=== PATIENT | male | born 1945 | race Caucasian/White ===

== ENCOUNTER → 2019-06-17 | Outpatient (CLI) | payer OTHER ==
[~2019-06-17] MED LIST: ALBUTEROL2.5 MG/0.5 INH; ALDACTONE25 M1 PO; ALLOPURINOL300 MG PO; AMLODIPINE10 MG PO; ATACAND32 MG PO; CARVEDILOL25 MG PO; CIPRO250 MG PO; COREG25 MG PO; COUMADIN5 M2 PO; COUMADIN7.5 M1 PO; Coumadin5 MG PO; DIGOXIN0.125 MG PO; DOXYCYCLINE100 MG PO; FUROSEMIDE40 MG PO; GABAPENTIN300 MG PO; GLYBURIDE5 MG PO; HUMULIN N100 U/ML SC; ISOSORBIDE DINI30 MG PO; LISINOPRIL40 MG PO; LOVAZA1 GM PO; PROVENTIL0.09 MG/AC IH
== END | disposition home or self-care (01) ==
LOC: CARD 10:06
DX: I35.2 Nonrheumatic aortic (valve) stenosis with insufficiency (principal); I48.21 Permanent atrial fibrillation; I27.20 Pulmonary hypertension, unspecified; Z86.79 Personal history of other diseases of the circulatory system; Z95.2 Presence of prosthetic heart valve

== ENCOUNTER 2019-08-25 11:41 | Inpatient (IN) | payer OTHER, MEDICARE ==
[2019-08-25] VITALS (9 sets, daily range): BP systolic 104–158; BP diastolic 47–85
[~2019-08-25] VITALS: Ht 182.8 cm
[~2019-08-25 11:41] MED LIST changes: -FUROSEMIDE40 MG PO; +LASIX20 MG PO; -LISINOPRIL40 MG PO; +ZESTRIL20 MG PO
[2019-08-25 12:20] LABS: BASO # 0.1 10*3/uL (0.0-0.1); BASO % 0.7 % (0.0-1.0); EOS # 0.3 10*3/uL (0.0-0.4); HEMOGLOBIN 11.3 g/dl (14.0-18.0); LYMPH # 1.3 10*3/uL (1.3-4.4); MEAN CELL VOLUME 93.3 fl (80.0-94.0); MEAN CORPUSCULAR HGB 30.1 pg (27.0-31.0); MEAN CORPUSCULAR HGB CONC 32.3 g/dl (33.0-37.0); MEAN PLATELET VOLUME 9.9 fl (9.6-12.3); MONO # 0.7 10*3/uL (0.1-1.0); MONO % 6.2 % (3.0-9.0); NEUT # 8.3 10*3/uL (2.3-7.9); NEUT % 77.6 % (47.0-73.0); PLATELET COUNT AUTOMATED 184 10*3/uL (130-400); RED BLOOD COUNT 3.75 10*6/uL (4.50-5.90); WHITE BLOOD COUNT 10.7 10*3/uL (4.8-10.8)
[2019-08-25 12:33] LABS: ALBUMIN 3.5 gm/dl (3.1-4.5); CREATININE 2.72 mg/dL (0.70-1.30); TOTAL PROTEIN 7.2 gm/dL (6.4-8.2)
[2019-08-25 12:36] LABS: POTASSIUM 8.3 mmol/L (3.5-5.1)
[2019-08-25 13:20] LABS: INTERNATIONAL NORM RATIO 4.8 (2.0-3.5)
[2019-08-25 14:55] LABS: ALBUMIN 3.7 gm/dl (3.1-4.5); CREATININE 2.7 mg/dL (0.70-1.30); TOTAL PROTEIN 7.5 gm/dL (6.4-8.2)
[2019-08-25 15:02] LABS: POTASSIUM 7.4 mmol/L (3.5-5.1)
--- NOTE | 2019-08-25 16:42 | NUR ---
PATIENT TAKEN TO ICCU AT THIS TIME BY THIS NURSE NO CHANGE IN PATIENT STATUS.
--- NOTE | 2019-08-25 16:43 | NUR ---
PATIENT HAD A WATERY BOWEL MOVEMENT. HAD A BOWEL MOVEMENT EARLIER WELL.
--- NOTE | 2019-08-25 17:00 | NUR ---
A 74, admitted to ICCU, under the services of LIVIA Cristobal DO with a diagnosis of HYPERAKALEMIA. Chief complaint is WEAKNESS. Patient arrived via ambulance from ER. Monitor applied. Initial assessment completed. Vital signs taken and recorded. LIVIA CRISTOBAL DO notified of admission to the unit. Orders received. See assessment for past medical history, medications and allergies. Patient and/or family oriented to unit. [facility] visitation policy reviewed. Clothing/patient valuable form completed. JARAD CARO
--- NOTE | 2019-08-25 17:08 | NUR ---
U NOTIFIED OF CONSULT FOR DEPRESSION
[2019-08-25] MEDS ORDERED: ZOCOR20 MG PO (17:12)
[2019-08-25] MEDS ORDERED: VITAMIN D-32000 UNI1 PO (17:15)
[2019-08-25] MEDS ORDERED: CELEXA10 MG PO (17:16)
[2019-08-25] MEDS ORDERED: MELATONIN3 MG PO (17:18)
[2019-08-25] MEDS ORDERED: COUMADIN2.5 M1 PO ×2 (17:22→17:23)
[2019-08-25] MEDS ORDERED: COUMADIN5 M2 PO (17:24)
[2019-08-25 17:28] LABS: CREATININE 2.55 mg/dL (0.70-1.30)
[2019-08-25 17:29] LABS: POTASSIUM 6.6 mmol/L (3.5-5.1)
--- NOTE | 2019-08-25 20:25 | NUR ---
PT. RESTING IN BED. HEP LOCKS X2 ASYMPT. LUNGS DIMINISHED BILAT, PULSE OX 99-100% ON RA. ABDOMEN SOFT, NONDISTENDED AND NORMO. NO PERIPHERAL EDEMA NOTED. WELLS DRAINING A CLEAR PALE CANDY URINE. MARCIA WELCH RN
[2019-08-25 21:06] LABS: BILIRUBIN NEGATIVE (NEGATIVE); BLOOD 3+ (NEGATIVE); CLARITY CLOUDY (CLEAR); GLUCOSE NEGATIVE (NEGATIVE); KETONE NEGATIVE (NEGATIVE); LEUKO ESTERASE TRACE (NEGATIVE); NITRITE NEGATIVE (NEGATIVE); UROBILINOGEN 0.2 E.U./dl (0.2-1.0)
[2019-08-25 21:07] LABS: COLOR ORANGE (YELLOW)
[2019-08-25 21:11] LABS: RBC TNTC rbc/hpf (0-2); WBC 0-2 wbc/hpf (0-5)
[2019-08-25 21:14] LABS: URINE CREATININE RANDOM 34.4 mg/dL
[2019-08-25 22:43] LABS: CREATININE 2.33 mg/dL (0.70-1.30); POTASSIUM 5.9 mmol/L (3.5-5.1)
--- NOTE | 2019-08-25 23:50 | NUR ---
DR. WARE CALLED IN TO CHECK PT STATUS. UPDATED TO PATIENT LAB WORK AND STATUS. ORDERS RECEIVED. MARCIA WELCH RN
[2019-08-26] VITALS: BP 103/54
[2019-08-26 04:00] VITALS: BP 112/67
[2019-08-26 05:36] LABS: ALBUMIN 3.4 gm/dl (3.1-4.5); CREATININE 2.34 mg/dL (0.70-1.30); PHOSPHOROUS 3.8 mg/dL (2.5-4.9); POTASSIUM 5.2 mmol/L (3.5-5.1)
[2019-08-26 05:42] LABS: FREE T4 1.02 ng/dl (0.76-1.46); THYROID STIM HORMONE (HS) 2.57 uIU/ml (0.358-4.75); TOTAL PROTEIN 7.3 gm/dL (6.4-8.2); VITAMIN D, 25-HYDROXY 32.5 ng/mL (30-100)
[2019-08-26 06:10] LABS: BASO # 0.1 10*3/uL (0.0-0.1); BASO % 0.6 % (0.0-1.0); EOS # 0.3 10*3/uL (0.0-0.4); EOS % 2.1 % (1.0-4.0); HEMATOCRIT 37.1 % (42.0-52.0); HEMOGLOBIN 12.1 g/dl (14.0-18.0); LYMPH # 1.5 10*3/uL (1.3-4.4); LYMPH % 11.2 % (27.0-41.0); MEAN CELL VOLUME 92.3 fl (80.0-94.0); MEAN CORPUSCULAR HGB 30.1 pg (27.0-31.0); MEAN CORPUSCULAR HGB CONC 32.6 g/dl (33.0-37.0); MEAN PLATELET VOLUME 10.4 fl (9.6-12.3); MONO # 1.1 10*3/uL (0.1-1.0); MONO % 8.2 % (3.0-9.0); NEUT # 10.4 10*3/uL (2.3-7.9); NEUT % 77.5 % (47.0-73.0); PLATELET COUNT AUTOMATED 211 10*3/uL (130-400); RED BLOOD COUNT 4.02 10*6/uL (4.50-5.90); RED CELL DISTRI WIDTH 15.1 % (0-14.5); WHITE BLOOD COUNT 13.4 10*3/uL (4.8-10.8)
[2019-08-26 06:14] LABS: ACT PARTIAL THROMBO TIME 50.4 SECONDS (20.0-32.1); INTERNATIONAL NORM RATIO 4.4 (2.0-3.5)
[2019-08-26 08:00] VITALS: BP 136/66
--- NOTE | 2019-08-26 08:28 | NUR ---
PHYSICAL THERAPY Pt admit from home with weakness per chart, if pt has a decline in functional status from baseline please consult PT thank you Brittany Cardenas PT
--- NOTE | 2019-08-26 08:55 | NUR ---
Nursing screen received and chart reviewed. Patient admitted from home w/ weakness. If patient should have a decline in ADLs then refer to OT. Thank you. Edda Erickson OTR/L
--- NOTE | 2019-08-26 09:00 | NUR ---
UP TO RECLINER X 2 ASSIST, PT ABLE TO STAND INDEPENDENTLY
--- NOTE | 2019-08-26 11:15 | NUR ---
TO BSC FOR LARG BM, THEN BACK TO BED
[2019-08-26 12:00] VITALS: BP 136/59
[2019-08-26 13:23] LABS: CREATININE 2.26 mg/dL (0.70-1.30)
--- NOTE | 2019-08-26 13:30 | NUR ---
Store Coordinator in to talk to patient. Patient states lives at home with his daughter. There are 0 steps in the home. Physician: Dr. Quach at the [facility] Pharmacy: [facility] or the [place] Home health services: none Patient's level of ADLs: MINIMAL ASSIST Patient has working utilities: yes DME: wheelchair, nebulizer Follow-up physician's appointment after d/c: will be made by the hospitalist nurse director upon discharge Does patient want to access PORTAL?: no Discharge plan discussed with patient. He lives at home with his daughter. He needs minimal assistance with his ADLs and gets around in a wheelchair. Discussed home health care services and he denies any home needs at this time. When medically stable he will be discharged to home. He states his daughter will provide transportation on discharge. CHAO WHIPPLE
[2019-08-26 16:00] VITALS: BP 151/58
[2019-08-26 20:00] VITALS: BP 124/60
--- NOTE | 2019-08-26 20:30 | NUR ---
PT RESTING IN BED. RESP-EASY AND REGULAR. IVF INFUSING WITH NO PROBLEM. NO C/O AT THIS TIME. CALL LIGHT IN REACH. BED ALARM ON.
--- NOTE | 2019-08-26 22:30 | NUR ---
RESTING IN BED. IVF INFUSING WITH NO PROBLEM. NO C/O AT THIS TIME. CALL LIGHT IN REACH.
[2019-08-27] VITALS: BP 102/41
--- NOTE | 2019-08-27 00:20 | NUR ---
AROUSES EASILY DURING ASSESSMENT. IV FLUIDS INFUSING INTO RIGHT WRIST; SITE ASYMPTOMATIC. PT. VOICES NO C/O AT THIS TIME. CALL LIGHT WITHIN REACH.
--- NOTE | 2019-08-27 05:30 | NUR ---
ASSIST OF 2 UP TO SIDE OF BED. BED ZEROED AT THIS TIME. BACK TO BED ASSIST OF 2. WEIGHED & BED ALARM INTACT. IV FLUIDS CONTINUE TO INFUSE ORDERED; NEW DRESSING APPLIED TO IV SITE. PT. STATES THAT HE DOES NOT HAVE TO GO TO THE BATHROOM AT THIS TIME. CALL LIGHT WITHIN REACH; BED IN LOW LOCKED POSITION.
--- NOTE | 2019-08-27 05:50 | NUR ---
BLOOD SUGAR 75; GAVE PATIENT SOME ORANGE JUICE & CRACKERS.
--- NOTE | 2019-08-27 06:30 | NUR ---
IV started left forearm with #22 protective cath after 1 attempts. Site prepped with Chloroprep. Sterile dressing applied. Patient tolerated procedure well. IV infusing at NS 60 cc/hr. MARTIN LOVETT
[2019-08-27 06:46] LABS: BASO # 0.1 10*3/uL (0.0-0.1); BASO % 0.7 % (0.0-1.0); EOS # 0.3 10*3/uL (0.0-0.4); EOS % 2.9 % (1.0-4.0); HEMATOCRIT 36.7 % (42.0-52.0); HEMOGLOBIN 11.7 g/dl (14.0-18.0); LYMPH % 17.4 % (27.0-41.0); MEAN CELL VOLUME 92.4 fl (80.0-94.0); MEAN CORPUSCULAR HGB 29.5 pg (27.0-31.0); MEAN CORPUSCULAR HGB CONC 31.9 g/dl (33.0-37.0); MEAN PLATELET VOLUME 10.3 fl (9.6-12.3); MONO # 1.2 10*3/uL (0.1-1.0); MONO % 10.9 % (3.0-9.0); NEUT # 7.6 10*3/uL (2.3-7.9); NEUT % 67.6 % (47.0-73.0); PLATELET COUNT AUTOMATED 204 10*3/uL (130-400); RED BLOOD COUNT 3.97 10*6/uL (4.50-5.90); RED CELL DISTRI WIDTH 14.8 % (0-14.5); WHITE BLOOD COUNT 11.2 10*3/uL (4.8-10.8)
[2019-08-27 07:16] LABS: ALBUMIN 3.3 gm/dl (3.1-4.5); CREATININE 2.19 mg/dL (0.70-1.30); PHOSPHOROUS 3.5 mg/dL (2.5-4.9); POTASSIUM 4.9 mmol/L (3.5-5.1)
[2019-08-27 07:24] LABS: INTERNATIONAL NORM RATIO 3.2 (2.0-3.5)
--- NOTE | 2019-08-27 07:45 | NUR ---
ASSESSMENT COMPLETE. AT THIS TIME PT HAS NO COMPLAINTS. CALL LIGHT WITHIN REACH, WILL CONTINUE TO MONITOR
--- NOTE | 2019-08-27 10:30 | NUR ---
Preparer Samples And Repairs in to see patient. No new needs or request at this time. Discussed home health care services and he denies any home needs at this time. When medically stable he will be discharged to home with his daughter.
--- NOTE | 2019-08-27 10:36 | NUR ---
PT FAMILY IN AND ASKING ABOUT RESULTS OF RENAL ULTRASOUND. WANTING TO TALK TO DR AT THIS TIME, AND RESIDENTS ARE ON THE FLOOR SO THEY WILL TALK TO THEM AT THIS TIME WELL
--- NOTE | 2019-08-27 11:52 | NUR ---
PT STATES THEY ARE FEELING SOB AND IS REQUESTING BREATHING TREATMENT. CALLED RESP NO ANSWER SO WILL CALL BACK
[2019-08-27 12:00] VITALS: BP 106/54
--- NOTE | 2019-08-27 12:01 | NUR ---
CALLED DR BERGMAN PER PT REQUEST OF A BREATHING TREATMENT AND HE STATES HE WILL PUT AN ORDER IN. RESPIRATORY ON THE FLOOR NOW AND INFORMED OF THIS
--- NOTE | 2019-08-27 13:58 | NUR ---
IN TO PT ROOM TO CHECK ON HIM, PT STATES HE WANTS TO GET OUT OF HIS CHAIR AND GO INTO BED. NO COMPLAINTS AT THIS TIME. WILL CONTINUE TO MONITOR
[2019-08-27 16:00] VITALS: BP 112/55
--- NOTE | 2019-08-27 16:34 | NUR ---
DR WARE ON FLOOR AND STATES SHE WANTS TO DC NS AND PUT HIM ON 1/2 NS AT 60. WILL PUT ORDER IN FOR HER
--- NOTE | 2019-08-27 17:15 | NUR ---
IV started right hand with # angiocath after 1 attempts. The IV site was prepped with Chloraprep. Heparin lock attached. IV solution 0.45NS infusing at 60 cc/hr. Sterile dressing applied. Patient tolerated precedure well. Procedure performed according to [facility] policy & procedure. SHERYL POON
[2019-08-27 20:00] VITALS: BP 143/55
--- NOTE | 2019-08-27 21:57 | NUR ---
TYLENOL ADMINISTERED FOR PT C/O HEADACHE RATED 5/10. WILL MONITOR.
[2019-08-28] VITALS: BP 109/52
[2019-08-28 07:08] LABS: BASO # 0.1 10*3/uL (0.0-0.1); BASO % 0.7 % (0.0-1.0); EOS # 0.3 10*3/uL (0.0-0.4); EOS % 2.5 % (1.0-4.0); HEMATOCRIT 33.2 % (42.0-52.0); HEMOGLOBIN 10.7 g/dl (14.0-18.0); LYMPH # 1.4 10*3/uL (1.3-4.4); LYMPH % 14.4 % (27.0-41.0); MEAN CORPUSCULAR HGB 29.6 pg (27.0-31.0); MEAN CORPUSCULAR HGB CONC 32.2 g/dl (33.0-37.0); MEAN PLATELET VOLUME 10.2 fl (9.6-12.3); MONO % 9.6 % (3.0-9.0); NEUT # 7.3 10*3/uL (2.3-7.9); NEUT % 72.3 % (47.0-73.0); PLATELET COUNT AUTOMATED 186 10*3/uL (130-400); RED BLOOD COUNT 3.61 10*6/uL (4.50-5.90); RED CELL DISTRI WIDTH 14.7 % (0-14.5)
[2019-08-28 07:45] LABS: CREATININE 1.93 mg/dL (0.70-1.30); POTASSIUM 5.3 mmol/L (3.5-5.1)
[2019-08-28 08:07] LABS: CREATININE,URINE 125.6 mg/dL (Not Estab.); MICRO ALBUMIN/CRE RATIO 241.8 (0.0-30.0)
--- NOTE | 2019-08-28 08:17 | NUR ---
Spoke to Jeanne at the [place] regarding discharge planning. Informed of patient's status and discharge plans. She will call again tomorrow to see how the patient is doing.
--- NOTE | 2019-08-28 10:30 | NUR ---
Senior Sales Assistant in to see patient. Daughters at his bedside. He is sitting on the edge of his bed. Discussed short term SNF and he refuses. Discussed home health care services and he is agreeable but wants it through the [place] as his [place] is [place] A only. Will reach out to Zakiya at the [facility].
[2019-08-28 12:00] VITALS: BP 116/60
--- NOTE | 2019-08-28 15:28 | NUR ---
Message left for Zakiya at the [facility] regarding home health care services. Awaiting return call.
[2019-08-28 16:00] VITALS: BP 121/66
[2019-08-28 20:00] VITALS: BP 144/82
--- NOTE | 2019-08-28 20:00 | NUR ---
RESTING IN BED. VOICES NO C/O AT THIS TIME. CALL LIGHT WITHIN REACH.
[2019-08-28 22:00] VITALS: BP 149/82
--- NOTE | 2019-08-28 22:00 | NUR ---
BLOOD SUGAR 78; PT. STATES THAT HE DOES NOT TAKE ANY INSULIN AT HOME. TOOK PO MEDICATIONS WITHOUT DIFFICULTY. PULSE OX 99% ON ROOM AIR.. CALL LIGHT WITHIN REACH & BED ALARM PUT ON DUE TO PATIENT HAVING FALLS. PT. INFORMED THAT BED ALARM WAS PUT ON; VERBALIZED UNDERSTANDING.
[2019-08-29] VITALS: BP 125/50
[2019-08-29 06:45] LABS: BASO # 0.1 10*3/uL (0.0-0.1); BASO % 0.7 % (0.0-1.0); EOS # 0.3 10*3/uL (0.0-0.4); EOS % 3.3 % (1.0-4.0); HEMATOCRIT 31.1 % (42.0-52.0); LYMPH # 1.5 10*3/uL (1.3-4.4); LYMPH % 17.7 % (27.0-41.0); MEAN CELL VOLUME 92.8 fl (80.0-94.0); MEAN CORPUSCULAR HGB 29.9 pg (27.0-31.0); MEAN CORPUSCULAR HGB CONC 32.2 g/dl (33.0-37.0); MEAN PLATELET VOLUME 9.7 fl (9.6-12.3); MONO # 0.8 10*3/uL (0.1-1.0); NEUT # 5.8 10*3/uL (2.3-7.9); NEUT % 68.9 % (47.0-73.0); PLATELET COUNT AUTOMATED 162 10*3/uL (130-400); RED BLOOD COUNT 3.35 10*6/uL (4.50-5.90); RED CELL DISTRI WIDTH 14.8 % (0-14.5); WHITE BLOOD COUNT 8.4 10*3/uL (4.8-10.8)
[2019-08-29 07:01] LABS: INTERNATIONAL NORM RATIO 2.7 (2.0-3.5)
[2019-08-29 07:21] LABS: POTASSIUM 4.5 mmol/L (3.5-5.1)
[2019-08-29 07:23] LABS: CREATININE 1.75 mg/dL (0.70-1.30)
--- NOTE | 2019-08-29 07:30 | NUR ---
BLOOD SUGAR 69; NO COVERAGE NEEDED.
[2019-08-29 09:00] VITALS: BP 150/70
--- NOTE | 2019-08-29 09:00 | NUR ---
Gift Basket Packer in to see patient. Discussed receiving a message from Zakiya at the [place] regarding home health care services. Explained [facility] and he is agreeable and has an appt with the [facility] on 09/04. Nurse notified.
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
[2019-08-29] MEDS ORDERED: COUMADIN2.5 M1 PO (10:28)
[2019-08-29] MEDS ORDERED: COUMADIN5 M2 PO (10:28)
[2019-08-29] MEDS ORDERED: LASIX20 MG PO (10:29)
--- NOTE | 2019-08-29 13:40 | NUR ---
PT UNDERSTANDS DISCHARGE INSTRUCTIONS, IV REMOVED, TELE REMOVED. FAMILY AT BEDSIDE TO TAKE PATIENT HOME, NO QUESTIONS ON DISCHARGE AT THIS TIME
--- NOTE | 2019-08-29 13:41 | NUR ---
PATIENT DISCHARGED TO HOME.
== END 2019-08-29 13:41 | disposition home or self-care (01) | DRG 640 ==
LOC: ED 11:41 → ICCU 13:54 → EDHOLD 13:54 → ICCU 15:57 → 4E 08-26 18:00
PROVIDERS: Family Medicine; Internal Medicine; Internal Medicine Nephrology; Nurse Practitioner Family; ADMIT Emergency Medicine
DX: E87.5 Hyperkalemia (principal); N17.0 Acute kidney failure with tubular necrosis; I50.22 Chronic systolic (congestive) heart failure; I13.0 Hypertensive heart and chronic kidney disease with heart failure and stage 1 through stage 4 chronic kidney disease, or unspecified chronic kidney disease; I50.32 Chronic diastolic (congestive) heart failure; N18.4 Chronic kidney disease, stage 4 (severe); E87.1 Hypo-osmolality and hyponatremia; D64.9 Anemia, unspecified; D72.810 Lymphocytopenia; E87.8 Other disorders of electrolyte and fluid balance, not elsewhere classified; E11.22 Type 2 diabetes mellitus with diabetic chronic kidney disease; E78.5 Hyperlipidemia, unspecified; J44.9 Chronic obstructive pulmonary disease, unspecified; E11.42 Type 2 diabetes mellitus with diabetic polyneuropathy; F43.23 Adjustment disorder with mixed anxiety and depressed mood; Z95.2 Presence of prosthetic heart valve; Z95.0 Presence of cardiac pacemaker; I25.2 Old myocardial infarction; Z86.73 Personal history of transient ischemic attack (TIA), and cerebral infarction without residual deficits; Z79.899 Other long term (current) drug therapy; Z79.01 Long term (current) use of anticoagulants; Z82.49 Family history of ischemic heart disease and other diseases of the circulatory system; Z80.1 Family history of malignant neoplasm of trachea, bronchus and lung; Z87.891 Personal history of nicotine dependence

== ENCOUNTER 2019-10-12 08:41 | Inpatient (IN) | payer OTHER ==
[~2019-10-12] VITALS: Ht 182.8 cm; Wt 102.3 kg
[2019-10-12] VITALS (7 sets, daily range): BP systolic 127–176; BP diastolic 61–87
[~2019-10-12 08:41] MED LIST changes: +CELEXA10 MG PO; +COUMADIN2.5 M1 PO; +MELATONIN3 MG PO; +VITAMIN D-32000 UNI1 PO; +ZOCOR20 MG PO
[2019-10-12 09:18] LABS: BASO # 0.1 10*3/uL (0.0-0.1); BASO % 0.5 % (0.0-1.0); EOS # 0.3 10*3/uL (0.0-0.4); EOS % 2.7 % (1.0-4.0); HEMATOCRIT 35.4 % (42.0-52.0); HEMOGLOBIN 11.4 g/dl (14.0-18.0); LYMPH # 0.5 10*3/uL (1.3-4.4); MEAN CELL VOLUME 93.2 fl (80.0-94.0); MEAN CORPUSCULAR HGB CONC 32.2 g/dl (33.0-37.0); MEAN PLATELET VOLUME 10.4 fl (9.6-12.3); MONO % 11.1 % (3.0-9.0); NEUT # 7.5 10*3/uL (2.3-7.9); NEUT % 80.4 % (47.0-73.0); PLATELET COUNT AUTOMATED 167 10*3/uL (130-400); RED CELL DISTRI WIDTH 14.6 % (0-14.5); WHITE BLOOD COUNT 9.4 10*3/uL (4.8-10.8)
[2019-10-12 09:38] LABS: ALBUMIN 3.1 gm/dl (3.1-4.5); CREATININE 1.58 mg/dL (0.70-1.30); POTASSIUM 4.4 mmol/L (3.5-5.1); TOTAL PROTEIN 6.9 gm/dL (6.4-8.2)
[2019-10-12 09:41] LABS: TROPONIN I 0.058 ng/ml (<0.045)
[2019-10-12 09:42] LABS: INTERNATIONAL NORM RATIO 2.3 (2.0-3.5)
--- NOTE | 2019-10-12 12:10 | NUR ---
PT TEMP IS 98.1 ORAL. TYLENOL EFFECTIVE FOR FEVER.
[2019-10-12 12:15] LABS: BILIRUBIN NEGATIVE (NEGATIVE); BLOOD 2+ (NEGATIVE); CLARITY SL CLOUDY (CLEAR); COLOR YELLOW (YELLOW); GLUCOSE 1+ (NEGATIVE); KETONE NEGATIVE (NEGATIVE); LEUKO ESTERASE NEGATIVE (NEGATIVE); NITRITE NEGATIVE (NEGATIVE); UROBILINOGEN 0.2 E.U./dl (0.2-1.0)
[2019-10-12 12:20] LABS: BACTERIA TRACE; EPITHELIAL CELLS 0-2
[2019-10-12] MEDS ORDERED: COUMADIN2.5 M1 PO (13:46)
[2019-10-12] MEDS ORDERED: Coumadin5 MG PO (13:47)
--- NOTE | 2019-10-12 14:05 | NUR ---
Notified Dr. Moreland that med rec was updated.
--- NOTE | 2019-10-12 14:25 | NUR ---
Notified Dr. Moreland of elevated troponin.
--- NOTE | 2019-10-12 16:36 | NUR ---
Notified Dr. Moreland of elevated troponin of 0.076 as reported by lab.
--- NOTE | 2019-10-12 16:39 | NUR ---
Pt up out of bed with assist to use urinal. States he became weak and nauseated. Vomited small amount of liquid. States he has not eaten all day. Denies chest pain. Skin is cool and dry. Denies dizziness. Zofran given per prn order at this time.
--- NOTE | 2019-10-12 17:00 | NUR ---
ANSWERING SERVICE WAS NOTIFIED OF DR. MORTON CONSULT. RESPONSE OF NOTIFICATION WAS STATES DR. MORTON IS RECTIFYING ATTENDANT AND THEY WILL FORWARD INFORMATION TO THE PHYSICAN WITH REQUEST FOR CALL BACK. JUVENCIO CERVANTES
--- NOTE | 2019-10-12 17:30 | NUR ---
Dr. Damián miles.
--- NOTE | 2019-10-12 17:45 | NUR ---
States that zofran effective for nausea.
--- NOTE | 2019-10-12 20:08 | NUR ---
DR. GILLETTE CONTACTED AT THIS TIME IN REGARDS TO TROPONIN OF 0.099, NO NEW ORDERS RECIEVED AT THIS TIME.
[2019-10-13] VITALS: BP 120/53
[2019-10-13 06:46] LABS: BASO % 0.5 % (0.0-1.0); EOS % 0.1 % (1.0-4.0); HEMATOCRIT 35.8 % (42.0-52.0); HEMOGLOBIN 11.1 g/dl (14.0-18.0); LYMPH % 13.1 % (27.0-41.0); MEAN CELL VOLUME 94.5 fl (80.0-94.0); MEAN CORPUSCULAR HGB 29.3 pg (27.0-31.0); MEAN PLATELET VOLUME 10.3 fl (9.6-12.3); MONO # 1.2 10*3/uL (0.1-1.0); MONO % 14.9 % (3.0-9.0); NEUT # 5.5 10*3/uL (2.3-7.9); NEUT % 71.1 % (47.0-73.0); PLATELET COUNT AUTOMATED 155 10*3/uL (130-400); RED BLOOD COUNT 3.79 10*6/uL (4.50-5.90); RED CELL DISTRI WIDTH 14.6 % (0-14.5); WHITE BLOOD COUNT 7.8 10*3/uL (4.8-10.8)
[2019-10-13 07:14] LABS: ALBUMIN 2.9 gm/dl (3.1-4.5); CREATININE 1.71 mg/dL (0.70-1.30); TOTAL PROTEIN 6.7 gm/dL (6.4-8.2)
[2019-10-13 08:00] VITALS: BP 120/60
--- NOTE | 2019-10-13 09:00 | NUR ---
24 HR chart check completed.
--- NOTE | 2019-10-13 09:00 | NUR ---
RESTING IN BED WITH NO ACUTE DISTRESS NOTED. RESPIRATIONS EASY. LUNGS DIMINISHED WITH EXP WHEEZES. PULSE OX 100% 2L. NON-PROD COUGH, AWARE OF NEED FOR SPUTUM SPECIMEN AND CUP PRESENT AT BEDSIDE. CALL LIGHT WITHIN REACH. NO VOICED COMPLAINTS
[2019-10-13 12:00] VITALS: BP 121/66
--- NOTE | 2019-10-13 12:00 | NUR ---
VISITING WITH FAMILY. VSS. PULSE OX 97% RA. CALL LIGHT WITHIN REACH. NO VOICED COMPLAINTS. BED ALARM MAINTAINED FOR SAFETY
--- NOTE | 2019-10-13 14:00 | NUR ---
PHYSICAL THERAPY PT EVAL COMPLETED TODAY ON LEVEL 4: FULL EVAL TO FOLLOW. RECOMMEND PT WHILE HERE TO ADDRESS DECREASED STRENGTH AND OVERALL DECREASED MOBILITY. PT EVAL IS MODERATE COMPLEXITY:35235.D/CRECOMMENDATIONS ARE FOR SNF BASED ON EVAL TODAY BYT FAMILY STATES WILL MOST LIKELY REFUSE THEREFORE WOULD ADVISE HOME HEALTH SERVICES. THANK YOU FOR REFERRAL MARY ROSENTHAL PT
[2019-10-13 16:00] VITALS: BP 110/62
--- NOTE | 2019-10-13 16:00 | NUR ---
RESTING IN BED. NO DISTRESS. NO VOICED COMPLAINTS
--- NOTE | 2019-10-13 18:15 | NUR ---
DR MORTON HERE TO ASSESS PATIENT AND DISCUSS PLAN OF CARE
[2019-10-13 20:00] VITALS: BP 127/86
--- NOTE | 2019-10-13 20:39 | NUR ---
PATIENT IS AAOX3 RESTING IN BED WITH EASY AND REGULAR RESPERS ON ROOM AIR. ASSESSMENT IS COMPLETE WITH NO S/S OF DISTRESS NOTED OR C/O AT THIS TIME. BED IS LOW, LOCKED, AND CALL LIGHT IS WITHIN REACH, WILL MONITOR EFFECT, SEE SHIFT ASSESSMENT.
[2019-10-14] VITALS: BP 122/47
[2019-10-14 06:56] LABS: INTERNATIONAL NORM RATIO 2.3 (2.0-3.5)
[2019-10-14 06:59] LABS: CREATININE 1.71 mg/dL (0.70-1.30); POTASSIUM 4.2 mmol/L (3.5-5.1)
[2019-10-14 08:00] VITALS: BP 130/80
--- NOTE | 2019-10-14 08:08 | NUR ---
PHYSICAL THERAPY Screen and eval received pt has been evaluated and is on caseload thank you Brittany Cardenas PT
--- NOTE | 2019-10-14 09:00 | NUR ---
Community Living Specialist in to talk to patient. Patient states lives at home with daughter. There are no steps in the home. Physician: jeremy Pharmacy: [facility] Home health services: none Patient's level of ADLs: MINIMAL ASSIST Patient has working utilities: all working DME: wheelchair, walker, nebulizer Follow-up physician's appointment after d/c: will be made by hospitalist nurse director upon discharge Does patient want to access PORTAL?: no Discharge plan discussed with patient, daughter present that patient does not live with, patient states he has a walker and wheelchair but doesn't ambulate well, he doesn't have any home oxygen, he stated he has va and medicare insurance. discussed with him a discharge plan including a short term long term for rehab prior to returning home, he declined, stated he would return home, also discussed [facility] and educated them on the services they provide, educated him that if he wanted this to be set up through [place] he would need to contact the clinic in [place] and request this, he also had the option to use his medicare for this. patient wanted to go through the [place] and stated he would contact them when discharged, case management will follow. LUIS WEATHERS
--- NOTE | 2019-10-14 11:39 | NUR ---
SPEECH PATHOLOGY Nursing screen complete. This dept. will remain available for consult as needed. MADHU VERAS MSCCC-LEVER OPERATOR
[2019-10-14 12:00] VITALS: BP 144/93
--- NOTE | 2019-10-14 13:15 | NUR ---
PHYSICAL THERAPY Patient seen this pm 1:1 for therapy visit and and was sitting up on EOB upon therapist arrival. Patient identified by name / and presented with continuos O2-2L via NC. Patient resting Spo2 98%, HR 69 bpm prior to treatment as patient completed sit to stand transfer, MIN A from low bed surface, tolerating static stand x 2 minutes with mild fatigue noted. SpO2 was 98%, HR 82 bpm. Patient needed only brief seated rest break then ambulated 35'x 1, CGA, use of wh walker, demonstrating very slow, cautious gait pattern, secondary to increased fear of falling. Patient reports B LE weakness and was unsteady during 180 turn around. Patient returned to EOB sit and remained with call light, tray table and telephone. Will continue per POC as tolerated, total treatment time 17 minutes. Pablito Canales, GRIEVANCE AND APPEALS COORDINATOR
--- NOTE | 2019-10-14 14:08 | NUR ---
PT RESTING IN BED. NO COMPLAINTS AT THIS TIME. CALL LIGHT WITHIN REACH. WILL CONTINUE TO MONITOR.
--- NOTE | 2019-10-14 15:34 | NUR ---
Occupational therapy orders and nursing screen received. Will follow up with the patient for completion of the OT evaluation. Thank you. Shalonda Mascorro, OTR/L
[2019-10-14 16:00] VITALS: BP 140/63
--- NOTE | 2019-10-14 18:10 | NUR ---
PRN ZOFRAN GIVEN FOR NAUSEA/VOMITING WILL CHECK EFFECTIVENESS. CALL LIGHT IN REACH.
--- NOTE | 2019-10-14 18:59 | NUR ---
PT STATES ZOFRAN WAS SOMEWHAT EFFECTIVE. HE IS STILL FEELING JUST A LITTLE NAUSEOUS. WILL CONTINUE TO MONITOR.
--- NOTE | 2019-10-14 19:52 | NUR ---
PATIENT IS AAOX3, RESTING IN BED WITH EASY AND REGULAR RESPERS ON 2L O2 VIA NC. ASSESSMENT IS COMPLETE WITH NO C/O OR S/S OF DISTRESS NOTED. BED IS LOW, LOCKED, AND CALL LIGHT IS WITHIN REACH. WILL CONTINUE TO MONITOR, SEE SHIFT ASSESSMENT.
[2019-10-14 20:00] VITALS: BP 153/68
[2019-10-15] VITALS: BP 153/65
--- NOTE | 2019-10-15 00:32 | NUR ---
PATIENT C/O PERSISTANT COUGH. SPOKE WITH DR. IQBAL, SEE NEW ORDERS.
--- NOTE | 2019-10-15 05:00 | NUR ---
CHART CHECK COMPLETE.
[2019-10-15 06:36] LABS: INTERNATIONAL NORM RATIO 2.5 (2.0-3.5)
[2019-10-15 06:41] LABS: CREATININE 1.6 mg/dL (0.70-1.30); POTASSIUM 4.3 mmol/L (3.5-5.1)
[2019-10-15 08:00] VITALS: BP 126/60
--- NOTE | 2019-10-15 09:55 | NUR ---
PHYSICAL THERAPY Patient was resting supine in bed this am when approached for therapy visit and reports not feeling very well this morning. Patient stated he has a dry, non productive cough and feels achy all over. Patient requested to be seen this pm to allow him time to rest. Will continue per POC as tolerated. Pablito Canales, CAPACITY PLANNING MANAGER
--- NOTE | 2019-10-15 10:15 | NUR ---
case management visits with patient, he states he will return home when medically stable and will [facility], case management will follow
[2019-10-15 12:00] VITALS: BP 124/58
--- NOTE | 2019-10-15 13:15 | NUR ---
PHYSICAL THERAPY Patient seen this pm 1;1 for therapy visit and was sitting up on EOB following lunch upon therapist arrival. Patient identified by name / and stated he was feeling a little bit better this afternoon. Patient trasnfers sit to stand CGA and ambulates with use of wh walker, CGA, 40'x 1, demonstrating very slow, cautious gait pattern, including decreased stride. Patient reports he has fear of falling secondary to history of knee buckling without warning. Patient also needed v/c for safe walker navigation during 180 turn around and returned to EOB sit with increased fatigue. Patient would benefit from SNF to increase LE strength, standing activity tolerance and mobility to reduce risk of falls. Patient remained EOB sit with call light, tray table and telephone. Will continue per POC as tolerated, total treatment time 14 minutes. Pablito Canales, WELCOME CENTER AGENT
[2019-10-15 16:00] VITALS: BP 151/99
[2019-10-15 18:00] VITALS: BP 142/64
--- NOTE | 2019-10-15 19:00 | NUR ---
ASSUMED CARE FOR THIS PT AT THIS TIME. NO C/O VOICED. CALL LIGHT IN REACH.
[2019-10-15 20:00] VITALS: BP 121/45
--- NOTE | 2019-10-15 22:45 | NUR ---
24 HR chart check completed.
[2019-10-16] VITALS: BP 132/49
--- NOTE | 2019-10-16 00:03 | NUR ---
PT MEDICATED W/TESSALON PEARLS FOR C/O FREQUENT COUGH PROHIBITING PT FROM SLEEPING.
[2019-10-16 06:42] LABS: INTERNATIONAL NORM RATIO 2.9 (2.0-3.5)
--- NOTE | 2019-10-16 06:44 | NUR ---
PT MEDICATED W/TESSALON PEARLS FOR C/O FREQ COUGH.
[2019-10-16 07:00] LABS: CREATININE 1.56 mg/dL (0.70-1.30); POTASSIUM 4.1 mmol/L (3.5-5.1)
[2019-10-16 08:00] VITALS: BP 158/72
--- NOTE | 2019-10-16 08:30 | NUR ---
Patient resting quietly with no c/o discomfort. Respirations easy and regular. Vital signs stable. No overt distress. PARKER GIL R
--- NOTE | 2019-10-16 09:00 | NUR ---
case management visits with patient, he states he will return home with his daughter and denies any home needs, case management will follow
[2019-10-16 12:00] VITALS: BP 152/50
[2019-10-16] MEDS ORDERED: LASIX40 MG PO (13:31)
[2019-10-16] MEDS ORDERED: COUMADIN5 M2 PO (13:31)
[2019-10-16] MEDS ORDERED: ZITHROMAX250 MG PO (13:31)
[2019-10-16] MEDS ORDERED: OMNICEF300 MG PO (13:31)
--- NOTE | 2019-10-16 13:45 | NUR ---
PHYSICAL THERAPY Patient seen this pm 1:1 for therapy visit and was sitting up on EOB upon therapist arrival. Patient identified by name / and reports no new c/o's at this time. Patient was pleasant, transfering sit to stand SBA and ambulating with use of wh walker, CGA, 75'x 1, demonstrating slow, steady shell, no LOB, but still mild fatigue with bouts of unproductive coughing. Patient returned to EOB sit and remained with call light, tray table and telephone. Will continue per POC as tolerated, total treatment time 14 minutes. Pablito Canales, CLINICAL NEUROPSYCHOLOGIST
[2019-10-16] MEDS ORDERED: BENZONATATE100 M1 PO (13:48)
--- NOTE | 2019-10-16 15:45 | NUR ---
Discharge instructions reviewed with patient/family. Patient receptive and verbalizes understanding. Follow-up care arranged. Written instructions given to patient/family. PARKER GIL
--- NOTE | 2019-10-18 07:10 | NUR ---
PHYSICAL THERAPY CO-SIGN I approve of the Physical Therapy notes written above. Brittany Cardenas PT
== END 2019-10-16 16:17 | disposition home or self-care (01) | DRG 871 ==
LOC: ED 08:41 → EDHOLD 12:44 → 4E 12:44
PROVIDERS: Emergency Medicine; Family Medicine; Internal Medicine; ADMIT Internal Medicine
DX: A41.9 Sepsis, unspecified organism (principal); J18.9 Pneumonia, unspecified organism; I50.23 Acute on chronic systolic (congestive) heart failure; J44.0 Chronic obstructive pulmonary disease with (acute) lower respiratory infection; I13.0 Hypertensive heart and chronic kidney disease with heart failure and stage 1 through stage 4 chronic kidney disease, or unspecified chronic kidney disease; N18.4 Chronic kidney disease, stage 4 (severe); I50.9 Heart failure, unspecified; R79.89 Other specified abnormal findings of blood chemistry; R80.9 Proteinuria, unspecified; R31.21 Asymptomatic microscopic hematuria; E11.65 Type 2 diabetes mellitus with hyperglycemia; D64.9 Anemia, unspecified; R79.1 Abnormal coagulation profile; E78.5 Hyperlipidemia, unspecified; I48.91 Unspecified atrial fibrillation; I65.23 Occlusion and stenosis of bilateral carotid arteries; E11.22 Type 2 diabetes mellitus with diabetic chronic kidney disease; E11.40 Type 2 diabetes mellitus with diabetic neuropathy, unspecified; I25.2 Old myocardial infarction; Z86.73 Personal history of transient ischemic attack (TIA), and cerebral infarction without residual deficits; Z95.0 Presence of cardiac pacemaker; Z95.2 Presence of prosthetic heart valve; Z87.891 Personal history of nicotine dependence; Z82.49 Family history of ischemic heart disease and other diseases of the circulatory system; Z80.1 Family history of malignant neoplasm of trachea, bronchus and lung; Z79.899 Other long term (current) drug therapy

== ENCOUNTER 2019-10-18 08:14 | Emergency (ER) | payer OTHER ==
[~2019-10-18] VITALS: Ht 182.8 cm; Wt 102.1 kg
[~2019-10-18 08:14] MED LIST changes: +BENZONATATE100 M1 PO; +LASIX40 MG PO; +OMNICEF300 MG PO; +ZITHROMAX250 MG PO
[2019-10-18 08:48] LABS: BASO % 0.3 % (0.0-1.0); EOS # 0.1 10*3/uL (0.0-0.4); EOS % 0.7 % (1.0-4.0); HEMATOCRIT 35.5 % (42.0-52.0); HEMOGLOBIN 11.6 g/dl (14.0-18.0); LYMPH # 1.5 10*3/uL (1.3-4.4); LYMPH % 12.4 % (27.0-41.0); MEAN CELL VOLUME 91.3 fl (80.0-94.0); MEAN CORPUSCULAR HGB 29.8 pg (27.0-31.0); MEAN CORPUSCULAR HGB CONC 32.7 g/dl (33.0-37.0); MONO # 0.8 10*3/uL (0.1-1.0); MONO % 6.8 % (3.0-9.0); NEUT # 9.4 10*3/uL (2.3-7.9); NEUT % 79.3 % (47.0-73.0); PLATELET COUNT AUTOMATED 243 10*3/uL (130-400); RED BLOOD COUNT 3.89 10*6/uL (4.50-5.90); RED CELL DISTRI WIDTH 14.3 % (0-14.5); WHITE BLOOD COUNT 11.8 10*3/uL (4.8-10.8)
[2019-10-18 08:58] LABS: INTERNATIONAL NORM RATIO 3.2 (2.0-3.5)
[2019-10-18 09:02] LABS: ALBUMIN 3.2 gm/dl (3.1-4.5); CREATININE 1.54 mg/dL (0.70-1.30); POTASSIUM 4.4 mmol/L (3.5-5.1); TOTAL PROTEIN 7.5 gm/dL (6.4-8.2)
[2019-10-18 09:16] VITALS: BP 151/82
[2019-10-18 09:19] LABS: BILIRUBIN NEGATIVE (NEGATIVE); BLOOD NEGATIVE (NEGATIVE); CLARITY SL CLOUDY (CLEAR); COLOR YELLOW (YELLOW); GLUCOSE NEGATIVE (NEGATIVE); KETONE NEGATIVE (NEGATIVE); LEUKO ESTERASE NEGATIVE (NEGATIVE); NITRITE NEGATIVE (NEGATIVE); UROBILINOGEN 0.2 E.U./dl (0.2-1.0)
== END 2019-10-18 10:06 | disposition home or self-care (01) ==
LOC: ED 08:14
PROVIDERS: Emergency Medicine
DX: R33.9 Retention of urine, unspecified (principal); I12.9 Hypertensive chronic kidney disease with stage 1 through stage 4 chronic kidney disease, or unspecified chronic kidney disease; I50.9 Heart failure, unspecified; E11.22 Type 2 diabetes mellitus with diabetic chronic kidney disease; N18.4 Chronic kidney disease, stage 4 (severe); J44.9 Chronic obstructive pulmonary disease, unspecified; M10.9 Gout, unspecified; E78.00 Pure hypercholesterolemia, unspecified; I48.91 Unspecified atrial fibrillation; E78.5 Hyperlipidemia, unspecified; Z79.01 Long term (current) use of anticoagulants; Z79.2 Long term (current) use of antibiotics; Z79.899 Other long term (current) drug therapy; Z86.73 Personal history of transient ischemic attack (TIA), and cerebral infarction without residual deficits; Z87.891 Personal history of nicotine dependence

== ENCOUNTER → 2019-12-16 | Outpatient (CLI) | payer OTHER ==
[2019-12-16 10:36] LABS: BASO # 0.1 10*3/uL (0.0-0.1); BASO % 0.8 % (0.0-1.0); EOS # 0.4 10*3/uL (0.0-0.4); EOS % 4.2 % (1.0-4.0); HEMATOCRIT 36.2 % (42.0-52.0); LYMPH # 1.2 10*3/uL (1.3-4.4); LYMPH % 13.3 % (27.0-41.0); MEAN CELL VOLUME 85.8 fl (80.0-94.0); MEAN CORPUSCULAR HGB CONC 31.5 g/dl (33.0-37.0); MEAN PLATELET VOLUME 10.8 fl (9.6-12.3); MONO # 0.6 10*3/uL (0.1-1.0); MONO % 7.1 % (3.0-9.0); NEUT # 6.7 10*3/uL (2.3-7.9); NEUT % 74.2 % (47.0-73.0); PLATELET COUNT AUTOMATED 227 10*3/uL (130-400); RED BLOOD COUNT 4.22 10*6/uL (4.50-5.90); RED CELL DISTRI WIDTH 15.2 % (0-14.5)
[2019-12-16 10:46] LABS: INTERNATIONAL NORM RATIO 3.2 (2.0-3.5)
== END | disposition home or self-care (01) ==
LOC: LAB 09:32
PROVIDERS: Specialist
DX: Z79.01 Long term (current) use of anticoagulants (principal)

== ENCOUNTER 2020-07-31 12:17 | Emergency (ER) | payer OTHER ==
[~2020-07-31] VITALS: Wt 96.2 kg
[2020-07-31 12:23] VITALS: BP 175/72
[2020-07-31 13:14] LABS: BASO # 0.1 10*3/uL (0.0-0.1); BASO % 0.6 % (0.0-1.0); EOS # 0.6 10*3/uL (0.0-0.4); EOS % 6.1 % (1.0-4.0); HEMATOCRIT 37.1 % (42.0-52.0); LYMPH % 10.9 % (27.0-41.0); MEAN CELL VOLUME 85.9 fl (80.0-94.0); MEAN CORPUSCULAR HGB 26.4 pg (27.0-31.0); MEAN CORPUSCULAR HGB CONC 30.7 g/dl (33.0-37.0); MEAN PLATELET VOLUME 10.8 fl (9.6-12.3); MONO # 0.8 10*3/uL (0.1-1.0); MONO % 8.4 % (3.0-9.0); NEUT # 6.9 10*3/uL (2.3-7.9); NEUT % 73.4 % (47.0-73.0); PLATELET COUNT AUTOMATED 188 10*3/uL (130-400); RED BLOOD COUNT 4.32 10*6/uL (4.50-5.90); RED CELL DISTRI WIDTH 16.4 % (0-14.5); WHITE BLOOD COUNT 9.5 10*3/uL (4.8-10.8)
[2020-07-31 13:23] LABS: INTERNATIONAL NORM RATIO 3.2 (2.0-3.5)
[2020-07-31 13:59] LABS: ALBUMIN 3.1 gm/dl (3.1-4.5); CREATININE 1.73 mg/dL (0.70-1.30); POTASSIUM 3.9 mmol/L (3.5-5.1); TOTAL PROTEIN 7.6 gm/dL (6.4-8.2)
[2020-07-31 14:00] LABS: TROPONIN I 0.028 ng/ml (<0.045)
[2020-07-31] MEDS ORDERED: K-TAB10 MEQ PO (14:44)
== END 2020-07-31 14:51 | disposition home or self-care (01) ==
LOC: ED 12:17
PROVIDERS: Physician Assistant
DX: I50.33 Acute on chronic diastolic (congestive) heart failure (principal)

== ENCOUNTER 2021-04-06 23:20 | Inpatient (IN) | payer OTHER ==
[~2021-04-06] VITALS: Ht 182.8 cm; Wt 87.2 kg
[~2021-04-06 23:20] MED LIST changes: +K-TAB10 MEQ PO
[2021-04-06 23:39] VITALS: BP 142/56
[2021-04-07 00:01] LABS: BASO # 0.1 10*3/uL (0.0-0.1); EOS # 0.5 10*3/uL (0.0-0.4); EOS % 7.4 % (1.0-4.0); HEMATOCRIT 32.6 % (42.0-52.0); LYMPH # 1.5 10*3/uL (1.3-4.4); LYMPH % 19.8 % (27.0-41.0); MEAN CELL VOLUME 84.5 fl (80.0-94.0); MEAN CORPUSCULAR HGB 27.2 pg (27.0-31.0); MEAN CORPUSCULAR HGB CONC 32.2 g/dl (33.0-37.0); MEAN PLATELET VOLUME 9.5 fl (9.6-12.3); MONO # 0.8 10*3/uL (0.1-1.0); MONO % 10.3 % (3.0-9.0); NEUT # 4.5 10*3/uL (2.3-7.9); NEUT % 61.2 % (47.0-73.0); PLATELET COUNT AUTOMATED 168 10*3/uL (130-400); RED BLOOD COUNT 3.86 10*6/uL (4.50-5.90); RED CELL DISTRI WIDTH 19.4 % (0-14.5); WHITE BLOOD COUNT 7.3 10*3/uL (4.8-10.8)
[2021-04-07 00:14] LABS: CREATININE 1.81 mg/dL (0.70-1.30)
[2021-04-07 00:23] LABS: POTASSIUM 6.1 mmol/L (3.5-5.1)
[2021-04-07 00:30] VITALS: BP 126/75
[2021-04-07] MEDS ORDERED: DIGOX125 MCG PO (01:02)
[2021-04-07] MEDS ORDERED: LISINOPRIL20 MG PO (01:02)
[2021-04-07] MEDS ORDERED: ISOSORBIDE DINI30 MG PO (01:03)
[2021-04-07] MEDS ORDERED: ALLOPURINOL300 MG PO (01:03)
[2021-04-07] MEDS ORDERED: ALDACTONE25 M1 PO (01:04)
[2021-04-07 01:47] VITALS: BP 106/66
[2021-04-07 02:26] VITALS: BP 124/88
[2021-04-07] MEDS ORDERED: GLUCOTROL10 MG PO (03:38)
[2021-04-07] MEDS ORDERED: REFRESH LIQUIGE15 M1 OP (03:42)
[2021-04-07] MEDS ORDERED: PROVENTIL HFA6.7 GM INH (03:44)
[2021-04-07] MEDS ORDERED: LASIX40 MG PO (03:45)
[2021-04-07] MEDS ORDERED: Ipratropium Brom3 ML INH (03:47)
[2021-04-07] MEDS ORDERED: IMDUR SA30 MG PO (03:54)
[2021-04-07 06:11] LABS: BASO # 0.1 10*3/uL (0.0-0.1); BASO % 1.1 % (0.0-1.0); EOS # 0.4 10*3/uL (0.0-0.4); EOS % 4.4 % (1.0-4.0); HEMATOCRIT 34.9 % (42.0-52.0); LYMPH # 1.4 10*3/uL (1.3-4.4); LYMPH % 16.6 % (27.0-41.0); MEAN CELL VOLUME 84.7 fl (80.0-94.0); MEAN CORPUSCULAR HGB 26.9 pg (27.0-31.0); MEAN CORPUSCULAR HGB CONC 31.8 g/dl (33.0-37.0); MEAN PLATELET VOLUME 9.9 fl (9.6-12.3); MONO # 0.7 10*3/uL (0.1-1.0); MONO % 8.6 % (3.0-9.0); NEUT # 5.7 10*3/uL (2.3-7.9); NEUT % 69.1 % (47.0-73.0); PLATELET COUNT AUTOMATED 178 10*3/uL (130-400); RED BLOOD COUNT 4.12 10*6/uL (4.50-5.90); RED CELL DISTRI WIDTH 19.5 % (0-14.5); WHITE BLOOD COUNT 8.3 10*3/uL (4.8-10.8)
[2021-04-07 06:17] LABS: CREATININE 1.95 mg/dL (0.70-1.30); POTASSIUM 5.9 mmol/L (3.5-5.1)
[2021-04-07 06:20] LABS: INTERNATIONAL NORM RATIO 2.4 (2.0-3.5)
[2021-04-07 08:00] VITALS: BP 129/69
[2021-04-07 12:00] VITALS: BP 137/60
== END 2021-04-07 13:34 | disposition home or self-care (01) | DRG 641 ==
LOC: ED 23:20 → EDHOLD 04-07 01:18 → 5E 04-07 01:18
PROVIDERS: Internal Medicine; ADMIT Internal Medicine; ATTEND Internal Medicine
DX: E87.5 Hyperkalemia (principal); I13.0 Hypertensive heart and chronic kidney disease with heart failure and stage 1 through stage 4 chronic kidney disease, or unspecified chronic kidney disease; I48.21 Permanent atrial fibrillation; I50.22 Chronic systolic (congestive) heart failure; I65.23 Occlusion and stenosis of bilateral carotid arteries; D64.9 Anemia, unspecified; E83.41 Hypermagnesemia; I50.9 Heart failure, unspecified; E11.22 Type 2 diabetes mellitus with diabetic chronic kidney disease; E11.65 Type 2 diabetes mellitus with hyperglycemia; E78.5 Hyperlipidemia, unspecified; J44.9 Chronic obstructive pulmonary disease, unspecified; Z95.0 Presence of cardiac pacemaker; I25.2 Old myocardial infarction; Z86.73 Personal history of transient ischemic attack (TIA), and cerebral infarction without residual deficits; Z95.2 Presence of prosthetic heart valve; Z87.891 Personal history of nicotine dependence; Z82.49 Family history of ischemic heart disease and other diseases of the circulatory system; Z80.1 Family history of malignant neoplasm of trachea, bronchus and lung; Z79.899 Other long term (current) drug therapy; Z79.01 Long term (current) use of anticoagulants; N18.30 Chronic kidney disease, stage 3 unspecified